=== PATIENT | female | born 1960 | race Hispanic/Latino ===

== ENCOUNTER 2017-03-08 14:32 | Emergency (ER) | payer MEDICARE ==
[2017-03-08 15:19] LABS: Urine Drugs of Abuse Note Disclamer
[2017-03-08 15:34] LABS: Eosinophils % (Auto) 0.6 % (0.0-4.3)
[2017-03-08 15:50] LABS: Calcium 9.5 mg/dL (8.4-10.2); Chloride 99.5 mmol/L (98-107); Potassium 4.6 mmol/L (3.6-5.0)
[2017-03-08 16:04] LABS: Hematocrit 36.3 % (30.3-42.9); Hemoglobin 11.5 gm/dl (10.1-14.3); Red Blood Count 4.66 M/mm3 (3.65-5.03); White Blood Count 10.7 K/mm3 (4.5-11.0)
[2017-03-08 16:05] LABS: Mean Corpuscular HGB Conc 32 % (30-34); Mean Corpuscular Hemoglobin 25 pg (28-32); Mean Corpuscular Volume 78 fl (79-97); Mean Platelet Volume 7.9 fl (6-12); Platelet Count 445 K/mm3 (140-440); Red Cell Distribution Width 16.2 % (13.2-15.2)
[2017-03-08 16:06] LABS: Diff Status Complete
[2017-03-08 16:08] LABS: Bilirubin,Urine NEG (Negative); Blood,Urine NEG (Negative); Ketones,Urine NEG (Negative); Leukocyte Esterase,Urine NEG (Negative); Nitrite,Urine NEG (Negative); Protein,Urine <15 mg/dL mg/dL (Negative); RBC,Urine < 1.0 /HPF (0.0-6.0); Urobilinogen,Urine < 2.0 mg/dL (<2.0); WBC,Urine < 1.0 /HPF (0.0-6.0)
[2017-03-08] MEDS ORDERED: ATIVAN IM STA (20:37)
[2017-03-08] MEDS ORDERED: PEPCID PO ONE (20:38)
[2017-03-08] MEDS ORDERED: CARAFATE PO ONE (20:38)
--- NOTE | 2017-03-08 20:39 | Emergency Department Report ---
ED General Adult HPI - General Chief complaint: Psych Stated complaint: 2012 Time Seen by Provider: 03/08/17 20:25 Source: patient Mode of arrival: Ambulatory Limitations: No Limitations - History of Present Illness Initial comments: This is a 56-year-old female. She is previously unknown to me. Past medical history includes PTSD, bipolar, depression, sleep apnea, osteoporosis, dumping syndrome, gastric bypass and anxiety. The patient is brought to the hospital by local police department on a 2012. The patient recently indicates that she ran out of her benzodiazepines, and is requesting refill. She complains of headache, chest pressure, abdominal discomfort. Headache is global and throbbing. It is not sudden or thunderclap in nature. It did not respond intensity within an hour. It is not the worst headache of her life. The chest pain is central. It started at 4:30 in the morning. It does not radiate to the back, arms or neck. There is no leg pain or leg swelling. No recent trips greater than 4 hours. No recent hospital admissions. The patient also missed to abdominal pain. The abdominal pain is left lower quadrant. It is achy in nature. It does not radiate anywhere. It has been present for a year. It is not new, worse or different. The patient reports that she has decreased appetite, and is concerned that she is withdrawing from benzodiazepines. To me, the patient is not requesting a G- tube placement. She is not homicidal or suicidal. She is not having hallucinations. She does not have access to guns or firearms. The patient reports that she would like to have her psychiatric medications refilled. -: Gradual Location: head, chest, abdomen Quality: aching Consistency: intermittent Improves with: other (per hpi) Worsens with: other (per hpi) Associated Symptoms: chest pain, loss of appetite, malaise, weakness. denies: shortness of breath - Related Data Home Medications Medication Instructions Recorded Confirmed Last Taken ALPRAZolam [Xanax TAB] 1 mg PO TID 03/08/17 03/08/17 Unknown Gabapentin [Neurontin] 100 mg PO Q8HR 03/08/17 03/08/17 Unknown [place] 300 mg PO BID 03/08/17 03/08/17 Unknown Melatonin 6 mg PO HS 03/08/17 03/08/17 Unknown Mirtazapine [Remeron] 45 mg PO QHS 03/08/17 03/08/17 Unknown Olanzapine [ZyPREXA] 20 mg PO QHS 03/08/17 03/08/17 Unknown Ropinirole HCl [Requip] 0.5 mg PO TID 03/08/17 03/08/17 Unknown Ziprasidone [Geodon] 120 mg PO QHS 03/08/17 03/08/17 Unknown clonazePAM 2 mg PO QHS 03/08/17 03/08/17 Unknown Previous Rx's Medication Instructions Recorded Last Taken Type ALPRAZolam [Xanax TAB] 0.25 mg PO TID PRN #9 tab 03/08/17 Unknown Rx Dicyclomine [Bentyl] 10 mg PO QID PRN #20 capsule 03/08/17 Unknown Rx Ondansetron [Zofran Odt] 4 mg PO QID PRN #20 tab.rapdis 03/08/17 Unknown Rx Allergies Allergy/AdvReac Type Severity Reaction Status Date / Time No Known Allergies Allergy Verified 03/08/17 22:57 ED Review of Systems ROS: Stated complaint: 2012 Other details as noted in HPI Constitutional: malaise. denies: fever Eyes: denies: vision change ENT: denies: epistaxis Respiratory: see HPI Cardiovascular: chest pain Gastrointestinal: abdominal pain Genitourinary: denies: dysuria Musculoskeletal: arthralgia, myalgia Skin: denies: lesions Neurological: weakness Psychiatric: anxiety. denies: homicidal thoughts, suicidal thoughts ED Past Medical Hx - Past Medical History Hx Psychiatric Treatment: Yes (PTSD / bipolar / depression) Additional medical history: sleep apnea. osteoporosis. "dumping syndrome". HYPOTHYROID - Surgical History Hx Cholecystectomy: Yes Additional Surgical History: gastric bypass. "intestional surgery / part of colon removed". tonsillectomy - Social History Smoking Status: Never Smoker Substance Use Type: Prescribed - Medications Home Medications: Home Medications Medication Instructions Recorded Confirmed Last Taken Type ALPRAZolam [Xanax TAB] 0.25 mg PO TID PRN #9 tab 03/08/17 Unknown Rx ALPRAZolam [Xanax TAB] 1 mg PO TID 03/08/17 03/08/17 Unknown History Dicyclomine [Bentyl] 10 mg PO QID PRN #20 capsule 07/20/17 Unknown Rx Gabapentin [Neurontin] 100 mg PO Q8HR 03/08/17 03/08/17 Unknown History [place] 300 mg PO BID 03/08/17 03/08/17 Unknown History Melatonin 6 mg PO HS 03/08/17 03/08/17 Unknown History Mirtazapine [Remeron] 45 mg PO QHS 03/08/17 03/08/17 Unknown History Olanzapine [ZyPREXA] 20 mg PO QHS 03/08/17 03/08/17 Unknown History Ondansetron [Zofran Odt] 4 mg PO QID PRN #20 tab.rapdis 03/08/17 Unknown Rx Ropinirole HCl [Requip] 0.5 mg PO TID 03/08/17 03/08/17 Unknown History Ziprasidone [Geodon] 120 mg PO QHS 03/08/17 03/08/17 Unknown History clonazePAM 2 mg PO QHS 03/08/17 03/08/17 Unknown History ED Physical Exam - General Limitations: No Limitations General appearance: alert, in no apparent distress - Head Head exam: Present: atraumatic, normocephalic - Eye Eye exam: Present: normal appearance, PERRL, EOMI, other (Extraocular movements intact. Tongue midline. No facial droop. Facial sensation intact to light touch in the V1, V2, V3 distribution bilaterally. 5 and 5 strength in 4 extremities.. Sensation is intact to light touch in 4 extremities.). Absent: nystagmus - ENT ENT exam: Present: normal exam, normal orophraynx, mucous membranes moist, normal external ear exam - Neck Neck exam: Present: normal inspection, full ROM. Absent: tenderness, meningismus - Respiratory Respiratory exam: Present: normal lung sounds bilaterally. Absent: respiratory distress, wheezes, rales, rhonchi, stridor, chest wall tenderness, accessory muscle use, decreased breath sounds, prolonged expiratory - Cardiovascular Cardiovascular Exam: Present: regular rate, normal rhythm, normal heart sounds. Absent: bradycardia, tachycardia, irregular rhythm, systolic murmur, diastolic murmur, rubs, gallop - GI/Abdominal GI/Abdominal exam: Present: soft, tenderness, normal bowel sounds, other (there is minimal left lower quadrant tenderness. There is no rebound, guarding or peritoneal signs.). Absent: distended, guarding, rebound, rigid, pulsatile mass - Extremities Exam Extremities exam: Present: normal inspection, full ROM, normal capillary refill. Absent: tenderness, pedal edema, joint swelling, calf tenderness - Back Exam Back exam: Present: normal inspection, full ROM. Absent: tenderness, CVA tenderness (R), CVA tenderness (L), muscle spasm, paraspinal tenderness, vertebral tenderness - Neurological Exam Neurological exam: Present: alert, oriented X3, normal gait, other (Extraocular movements intact. Tongue midline. No facial droop. Facial sensation intact to light touch in the V1, V2, V3 distribution bilaterally. 5 and 5 strength in 4 extremities.. Sensation is intact to light touch in 4 extremities.). Absent : motor sensory deficit - Psychiatric Psychiatric exam: Present: anxious. Absent: homicidal ideation, suicidal ideation - Skin Skin exam: Present: warm, dry, intact, normal color. Absent: rash ED Course Vital Signs 03/08/17 03/08/17 03/08/17 14:51 20:39 20:41 Temperature 98.7 F Pulse Rate 86 76 Respiratory 19 19 15 Rate Blood Pressure 118/78 Blood Pressure 118/79 [Right] O2 Sat by Pulse 99 99 99 Oximetry 03/08/17 03/08/17 21:50 23:02 Temperature Pulse Rate 72 80 Respiratory 15 15 Rate Blood Pressure Blood Pressure 117/68 107/64 [Right] O2 Sat by Pulse 100 99 Oximetry - Reevaluation(s) Reevaluation #1: 03/08/17 21:05 . Differential diagnosis: Anxiety, mood disorder, benzodiazepine dependence, migraine headache, tension headache, cluster headache, pneumonia, acute coronary syndrome, GERD, gastritis, pneumothorax, colitis, diverticulitis, functional abdominal pain, constipation Assessment and plan: 56-year-old female with an initial complaint of anxiety and benzodiazepine dependence, who on review of systems endorses numerous additional additional complaints. She is afebrile, with reassuring vital signs , low risk by AGUILAR score, low risk by heart score, low risk by wells criteria, with no pulmonary embolus or DVT risk factors. Her primary complaint is anxiety and benzodiazepine dependence. She is not homicidal or suicidal, and this required 1013 at this time. Crisis/mental health consult is obtained, but I believe the patient does not meet criteria for inpatient psychiatric admission. I did inform her that I will give her Ativan to assist with her symptoms, and I would discharge her with a small prescription of benzodiazepines to abort and avert Withdrawal seizures. . we will obtain EKG 2, troponin 2, check serum toxicology studies, x-ray of the chest, noncontrast CT scan of the abdomen and pelvis. He Reevaluation #2: 03/08/17 22:48 CT scan demonstrates constipation. X-ray of the chest is negative. Patient able to walk without difficulty. Patient is able to drink without difficulty. The patient is also independently assessed by Caitlin Delgado of the crisis team, and she also concurs that the patient does not require inpatient services at this time. Troponins negative 2. EKG morphological unremarkable 2. The patient is suitable to follow up with an outpatient primary care doctor at this time ED Medical Decision Making - Lab Data Result diagrams: 03/08/17 15:17 03/08/17 15:21 Vital Signs 03/08/17 03/08/17 03/08/17 14:51 20:39 20:41 Temperature 98.7 F Pulse Rate 86 76 Respiratory 19 19 15 Rate Blood Pressure 118/78 Blood Pressure 118/79 [Right] O2 Sat by Pulse 99 99 99 Oximetry Lab Results 03/08/17 03/08/17 03/08/17 Range/Units 15:15 15:15 15:17 WBC 10.7 (4.5-11.0) K/mm3 RBC 4.66 (3.65-5.03) M/mm3 Hgb 11.5 (10.1-14.3) gm/dl Hct 36.3 (30.3-42.9) % MCV 78 L (79-97) fl MCH 25 L (28-32) pg MCHC 32 (30-34) % RDW 16.2 H (13.2-15.2) % Plt Count 445 H (140-440) K/mm3 Lymph % (Auto) 24.7 (13.4-35.0) % [place] % (Auto) 8.4 H (0.0-7.3) % Eos % (Auto) 0.6 (0.0-4.3) % Baso % (Auto) 1.0 (0.0-1.8) % Lymph # 2.6 (1.2-5.4) K/mm3 Sutton # 0.9 H (0.0-0.8) K/mm3 Eos # 0.1 (0.0-0.4) K/mm3 Baso # 0.1 (0.0-0.1) K/mm3 Add Manual Diff Complete Seg Neutrophils % 65.3 (40.0-70.0) % Seg Neutrophils # 7.0 (1.8-7.7) K/mm3 Sodium (137-145) mmol/L Potassium (3.6-5.0) mmol/L Chloride (98-107) mmol/L Carbon Dioxide (22-30) mmol/L Anion Gap mmol/L BUN (7-17) mg/dL Creatinine (0.7-1.2) mg/dL Estimated GFR ml/min BUN/Creatinine Ratio % Glucose (65-100) mg/dL Calcium (8.4-10.2) mg/dL Urine Color Yellow (Yellow) Urine Turbidity Clear (Clear) Urine pH 7.0 (5.0-7.0) Ur Specific [place] 1.010 (1.003-1.030) Urine Protein <15 mg/dl (Negative) mg/dL Urine Glucose (UA) Neg (Negative) mg/dL Urine Ketones Neg (Negative) mg/dL Urine Blood Neg (Negative) Urine Nitrite Neg (Negative) Urine Bilirubin Neg (Negative) Urine Urobilinogen < 2.0 (<2.0) mg/dL Ur Leukocyte Esterase Neg (Negative) Urine WBC (Auto) < 1.0 (0.0-6.0) /HPF Urine RBC (Auto) < 1.0 (0.0-6.0) /HPF U Epithel Cells (Auto) 1.0 (0-13.0) /HPF Urine Opiates Screen Presumptive negative Urine Methadone Screen Presumptive negative Ur Barbiturates Screen Presumptive negative Ur Phencyclidine Scrn Presumptive negative Ur Amphetamines Screen Presumptive negative U Benzodiazepines Scrn Presumptive negative Urine Cocaine Screen Presumptive negative U Marijuana (THC) Screen Presumptive negative Drugs of Abuse Note Disclamer Plasma/Serum Alcohol (0-0.07) gm% 03/08/17 03/08/17 Range/Units 15:21 15:22 WBC (4.5-11.0) K/mm3 RBC (3.65-5.03) M/mm3 Hgb (10.1-14.3) gm/dl Hct (30.3-42.9) % MCV (79-97) fl MCH (28-32) pg MCHC (30-34) % RDW (13.2-15.2) % Plt Count (140-440) K/mm3 Lymph % (Auto) (13.4-35.0) % [place] % (Auto) (0.0-7.3) % Eos % (Auto) (0.0-4.3) % Baso % (Auto) (0.0-1.8) % Lymph # (1.2-5.4) K/mm3 [place] # (0.0-0.8) K/mm3 Eos # (0.0-0.4) K/mm3 Baso # (0.0-0.1) K/mm3 Add Manual Diff Seg Neutrophils % (40.0-70.0) % Seg Neutrophils # (1.8-7.7) K/mm3 Sodium 139 (137-145) mmol/L Potassium 4.6 (3.6-5.0) mmol/L Chloride 99.5 (98-107) mmol/L Carbon Dioxide 24 (22-30) mmol/L Anion Gap 20 mmol/L BUN 19 H (7-17) mg/dL Creatinine 1.0 (0.7-1.2) mg/dL Estimated GFR 57 ml/min BUN/Creatinine Ratio 19.00 % Glucose 88 (65-100) mg/dL Calcium 9.5 (8.4-10.2) mg/dL Urine Color (Yellow) Urine Turbidity (Clear) Urine pH (5.0-7.0) Ur Specific [place] (1.003-1.030) Urine Protein (Negative) mg/dL Urine Glucose (UA) (Negative) mg/dL Urine Ketones (Negative) mg/dL Urine Blood (Negative) Urine Nitrite (Negative) Urine Bilirubin (Negative) Urine Urobilinogen (<2.0) mg/dL Ur Leukocyte Esterase (Negative) Urine WBC (Auto) (0.0-6.0) /HPF Urine RBC (Auto) (0.0-6.0) /HPF U Epithel Cells (Auto) (0-13.0) /HPF Urine Opiates Screen Urine Methadone Screen Ur Barbiturates Screen Ur Phencyclidine Scrn Ur Amphetamines Screen U Benzodiazepines Scrn Urine Cocaine Screen U Marijuana (THC) Screen Drugs of Abuse Note Plasma/Serum Alcohol < 0.01 (0-0.07) gm% - EKG Data -: EKG Interpreted by Me EKG shows normal: sinus rhythm Rate: normal - EKG Data When compared to previous EKG there are: previous EKG unavailable 03/08/17 21:07 normal sinus, 72 bpm, left axis deviation, QTC 475 ms, not morphologically consistent with STEMI, there is no prior for comparison. EKG #2 demonstrates normal sinus, 74 bpm, normal axis, QTC 508 ms, low voltage, not morphologically consistent with STEMI 03/08/17 22:49 - Radiology Data Radiology results: pending, report reviewed, image reviewed interpreted by me: X-ray of the chest is negative for acute disease Noncontrast CT scan of the abdomen and pelvis demonstrates no acute findings. Constipation is noted. Critical care attestation.: If time is entered above; I have spent that time in minutes in the direct care of this critically ill patient, excluding procedure time. ED Disposition Clinical Impression: Mood disorder, Abdominal pain, Chest pain Disposition: TO HOME OR SELFCARE Is pt being admited?: No Does the pt Need Aspirin: No Condition: Stable Instructions: Chest Pain (ED) Additional Instructions: Take the medications as directed. Xanax is going to be prescribed as a one- time courtesy to help you avoid withdrawal seizures. Follow up with a primary care doctor, or psychiatrist within the next 3-5 days to have her outpatient psychiatric medications refilled. Follow up with any of the listed cardiology specialists within the next week for your chest pain. Return to the ER right away with new pain, worsened pain, migration of pain, fevers, chills, intractable nausea or vomiting, confusion, homicidality, suicidality, inability to tolerate liquids. Prescriptions: ALPRAZolam [Xanax TAB] 0.25 mg PO TID PRN #9 tab PRN Reason: Anxiety Dicyclomine [Bentyl] 10 mg PO QID PRN #20 capsule PRN Reason: Pain Ondansetron [Zofran Odt] 4 mg PO QID PRN #20 tab.rapdis PRN Reason: Nausea Referrals: PRIMARY CARE, [Primary Care Provider] - 3-5 Days MARCELA BRANDON MD [Staff Physician] - 3-5 Days NAI DIOP MD [Staff Physician] - 3-5 Days YELENA MICHAEL MD [Staff Physician] - 3-5 Days [facility] [Outside] - 3-5 Days
[2017-03-08 21:52] LABS: Creatine Kinase 45 units/L (30-135)
[2017-03-08 22:23] LABS: Salicylate < 0.3 mg/dL (2.8-20.0)
[2017-03-08 22:24] LABS: Valproate < 2.8 ug/mL (50-100)
--- NOTE | 2017-03-08 22:43 | Cat Scan Report ---
FINAL REPORT PROCEDURE: CT ABDOMEN PELVIS WO CON TECHNIQUE: Computerized axial tomography of the abdomen and pelvis was performed without intravenous contrast. This study is performed without intravascular contrast material and its sensitivity for abdominal and pelvic pathology, including neoplasms, inflammation, abscess, free fluid, thrombosis, arterial dissection and infarction, is reduced compared with a contrast enhanced study. HISTORY: Abdominal pain COMPARISON: No prior studies are available for comparison. FINDINGS: Visualized lower thorax: No significant abnormality. Liver: Normal size and attenuation. Spleen: Normal size and attenuation. Gallbladder and biliary system: There has been cholecystectomy. Pancreas: Normal. Adrenals: Normal. Kidneys: Normal. GI tract: Appendix is visualized and does not appear inflamed. Gastric postsurgical changes are present. No bowel obstruction or acute inflammation is seen. There is mild to moderate constipation. Lymph nodes and mesentery: Normal. Vasculature: Normal. Bladder: Normal. Reproductive organs: Grossly unremarkable. Peritoneum: No free fluid. Musculoskeletal structures: Degenerative disc changes at L4-5 and L5-S1. Other: None. IMPRESSION: Mild to moderate constipation. No evidence of bowel obstruction or acute inflammatory process.
[2017-03-08 23:03] VITALS: BP 107/64
--- NOTE | 2017-03-09 08:06 | XRay Report ---
PORTABLE CHEST: Chest pain. An AP portable view of the chest demonstrates a normal cardiac contour considering the limits of this technique. The lungs are clear with no evidence of infiltrate, fluid or failure. IMPRESSION: Normal portable chest.
== END 2017-03-09 01:00 | disposition home or self-care (01) ==
LOC: ED 14:32 → EEVIPCON 14:32 → ED 03-09 01:00
DX: F39 Unspecified mood [affective] disorder (principal); R10.32 Left lower quadrant pain; R07.9 Chest pain, unspecified; F43.10 Post-traumatic stress disorder, unspecified; F31.9 Bipolar disorder, unspecified; G47.30 Sleep apnea, unspecified
CPT/HCPCS: 36415; 71010; 74176; 80048; 80164; 80178; 80307; 81001; 82550; 84484; 85025; 93005; 93010; 96372; 99285; G0480; J2060; 80320